=== PATIENT | female | born 1985 | race Caucasian/White ===

== ENCOUNTER 2020-05-25 11:00 | Emergency (ER) | payer OTHER ==
[~2020-05-25] VITALS: Ht 160 cm; Wt 68.0 kg
[2020-05-25 11:10] VITALS: BP 107/75
[2020-05-25] MEDS ORDERED: NORFLEX100 MG PO (11:45)
[2020-05-25] MEDS ORDERED: NAPROSYN500 MG PO (11:45)
== END 2020-05-25 12:00 | disposition home or self-care (01) ==
LOC: ER 11:00
DX: S00.03XA Contusion of scalp, initial encounter (principal); W22.8XXA Striking against or struck by other objects, initial encounter; Y93.89 Activity, other specified; Y92.89 Other specified places as the place of occurrence of the external cause; Y99.0 Civilian activity done for income or pay

== ENCOUNTER 2020-06-29 10:59 | Emergency (ER) | payer BC ==
[~2020-06-29] VITALS: Ht 160 cm; Wt 68.0 kg
[~2020-06-29 10:59] MED LIST: NAPROSYN500 MG PO; NORFLEX100 MG PO
[2020-06-29] MEDS ORDERED: NOHOMEMEDICATIONS (11:09)
[2020-06-29 11:33] LABS: URINE BILIRUBIN NEGATIVE (Negative); URINE BLOOD 3+ (Negative); URINE CLARITY CLEAR; URINE COLOR YELLOW; URINE GLUCOSE-RANDOM* NEGATIVE (Negative); URINE KETONES TRACE (Negative); URINE NITRITE-REFLEX NEGATIVE (Negative); URINE PROTEIN (DIPSTICK) 1+ (Negative)
[2020-06-29 11:36] LABS: URINE LEUKOCYTES-REFLEX 1+ (Negative)
[2020-06-29 11:45] LABS: SQUAMOUS >10 Many /LPF (0-3)
[2020-06-29 11:46] LABS: BACTERIA-REFLEX >30 Many /HPF (None Seen); CRYSTALS None Seen /LPF (None Seen)
[2020-06-29 11:47] LABS: CASTS None Seen /LPF (None Seen); MUCUS 0-3 Light strn/LPF (None Seen); URINE WBC-REFLEX 6-15 Few /HPF (0-5)
[2020-06-29 12:13] LABS: BASOPHILS 0.2 % (0.0-2.0); EOSINOPHILS 0.2 % (0.0-3.0); HEMATOCRIT 37.2 % (37.0-47.0); HEMOGLOBIN 12.4 gm/dL (12.0-15.0); LYMPHOCYTES 6.9 % (24.0-44.0); MCH 28.7 pg (26.0-34.0); MCHC 33.5 g/dL (28.0-37.0); MCV 85.8 fL (80.0-100.0); MONOCYTES 5.2 % (1.0-8.0); PLATELET COUNT 279 thou/uL (150-400); POLYS 87.5 % (36.0-66.0); RBC 4.33 mil/uL (4.20-5.00); RDW 12.9 % (10.5-14.5); WBC 10.3 thou/uL (4.0-11.0)
[2020-06-29 12:20] LABS: CALCIUM 9.8 mg/dL (8.5-10.1); CREATININE 1.2 mg/dL (0.6-1.0); POTASSIUM 3.7 mmol/L (3.5-5.1)
[2020-06-29 12:26] LABS: ALBUMIN 4.2 g/dL (3.4-5.0); TOTAL BILIRUBIN 0.5 mg/dL (0.2-1.0)
[2020-06-29] MEDS ORDERED: IBU600 MG PO (13:57)
[2020-06-29] MEDS ORDERED: ZOFRAN ODT4 MG PO (13:57)
[2020-06-29] MEDS ORDERED: FLOMAX0.4 MG PO (13:57)
[2020-06-29] MEDS ORDERED: KEFLEX500 M1 PO (13:57)
[2020-06-29] MEDS ORDERED: NORCO 10-325 T1 EACH PO (13:57)
[2020-06-29 14:30] VITALS: BP 104/67
== END 2020-06-29 14:30 | disposition home or self-care (01) ==
LOC: ER 10:59
PROVIDERS: Emergency Medicine
DX: N20.0 Calculus of kidney (principal); N39.0 Urinary tract infection, site not specified; F12.90 Cannabis use, unspecified, uncomplicated; Z91.018 Allergy to other foods